=== PATIENT | female | born 1960 | race Caucasian/White ===

== ENCOUNTER 2021-05-19 21:18 | Inpatient (IN) | payer BC ==
[~2021-05-19] VITALS: Ht 160 cm; Wt 100.2 kg
--- NOTE | 2021-05-19 21:41 | NUR ---
Pt BIB EMS for generalized edema that has become worse over the last two weeks, this has caused the pt to also expierences SOB and difficulty breathing. Pt has audible stridor on exhalation and is on 4L NC to aid in oxygenation. Pt has indwelling catheter placed [employer], prior facility administered lasix and recived 650 mL output. Urine production still steady, EKG done on arrival, connected to BP and O2 monitors, TM
--- NOTE | 2021-05-19 21:51 | NUR ---
Favio ([facility]) [phone]
[2021-05-19 22:26] LABS: ANION GAP 7 mmol/L (5-15); CALCIUM 7.1 mg/dL (8.5-10.1); CHLORIDE 105 mmol/L (98-107)
[2021-05-19 22:29] LABS: TROPONIN I < 0.015 ng/mL (0.000-0.045)
--- NOTE | 2021-05-19 22:39 | NUR ---
Favio called and notified of room change
[2021-05-19] MEDS ORDERED: BISACODYL 10 MG SUPP PR PRN (23:00)
[2021-05-19] MEDS: ERYTHROMYCIN OPHTH 0.5%, 1GM EACHEYE SCH (23:00)
[2021-05-19] MEDS: SODIUM CHLORIDE FLUSH 10ML SYR IVF SCH (23:00)
[2021-05-19] MEDS: NYSTATIN TOPICAL POWDER 15GM TP SCH (23:00)
[2021-05-19] MEDS ORDERED: ACETAMINOPHEN 325 MG TABLET PO PRN (23:00)
[2021-05-19] MEDS ORDERED: POTASSIUM CHLORIDE 40 MEQ in SODIUM CHLORIDE 0.9% 100 ML IV ONE (23:00)
[2021-05-19] MEDS ORDERED: POLYETHYLENE GLYCOL 17 GM PACKET PO PRN (23:00)
[2021-05-19] MEDS ORDERED: POTASSIUM CHLORIDE 40 MEQ in SODIUM CHLORIDE 0.9% 500 ML IV ONE (23:45)
[2021-05-20] MEDS: HEPARIN 5,000 UNITS/ML, 1ML SQ SCH ×3 (00:57→17:11)
[2021-05-20 01:13] VITALS: BP 132/82
[2021-05-20 01:22] VITALS: BP 132/79
[2021-05-20] MEDS ORDERED: MAGNESIUM SULFATE PMX 2GM/50ML 50 ML IV ONE (02:00)
[2021-05-20 05:11] LABS: MICROSCOPIC INDICATED
[2021-05-20 05:44] LABS: BASOPHILS % (AUTO) 1 % (0-1); EOSINOPHILS % (AUTO) 4 % (1-7); LYMPHOCYTES % (AUTO) 23 % (22-44); MEAN CORPUSCULAR HEMOGLOBIN 36.7 pg (27.0-34.8); MEAN CORPUSCULAR HGB CONC 33.3 g/dL (32.4-35.8); MEAN PLATELET VOLUME 8.5 fL (7.4-10.4); MONOCYTES % (AUTO) 9 % (2-9); NEUTROPHILS % (AUTO) 63 % (42-75); PLATELET COUNT 218 x10^3/uL (130-400); RED CELL DISTRIBUTION WIDTH 18.6 % (9.6-15.2)
[2021-05-20 05:50] LABS: ANION GAP 7 mmol/L (5-15); CALCIUM 7.1 mg/dL (8.5-10.1); CHLORIDE 106 mmol/L (98-107)
[2021-05-20 05:51] LABS: CREATININE 1.16 mg/dL (0.55-1.02)
[2021-05-20 06:15] LABS: <PLATELET ESTIMATE> ADEQUATE; <PLT MORPHOLOGY> NORMAL PLT MORPH; ANISOCYTOSIS 1+
[2021-05-20] MEDS: ERYTHROMYCIN OPHTH 0.5%, 1GM EACHEYE SCH ×4 (06:17→21:06)
[2021-05-20] MEDS: SODIUM CHLORIDE FLUSH 10ML SYR IVF SCH ×2 (07:50→21:00)
[2021-05-20] MEDS: FUROSEMIDE 40 MG/4 ML IV SCH ×2 (07:50→17:11)
[2021-05-20] MEDS: SENNA/DOCUSATE TABLET PO SCH (07:51)
[2021-05-20 08:01] VITALS: BP 148/94
[2021-05-20] MEDS ORDERED: MAGNESIUM SULFATE PMX 4GM/100M 100 ML IVPB ONE (08:30)
[2021-05-20] MEDS: POTASSIUM CHLORIDE 20 MEQ PACKET PO SCH ×2 (09:12→17:11)
[2021-05-20] MEDS: NYSTATIN TOPICAL POWDER 15GM TP SCH ×3 (09:52→21:06)
[2021-05-20 12:31] VITALS: BP 132/90
[2021-05-20] MEDS ORDERED: PHARMACY MAY ADJ FOR RENAL FX MC PRN (15:30)
[2021-05-20] MEDS: AMPICILLIN/SULBACTAM 3 GM in SODIUM CHLORIDE 0.9% 100 ML IV SCH ×2 (17:10→21:06)
[2021-05-20 18:44] VITALS: BP 119/73
[2021-05-21] MEDS: HEPARIN 5,000 UNITS/ML, 1ML SQ SCH ×4 (00:40→23:47)
[2021-05-21 02:15] VITALS: BP 122/72
[2021-05-21] MEDS: AMPICILLIN/SULBACTAM 3 GM in SODIUM CHLORIDE 0.9% 100 ML IV SCH ×4 (03:49→22:42)
[2021-05-21 05:10] LABS: CALCIUM 7.3 mg/dL (8.5-10.1); CHLORIDE 105 mmol/L (98-107)
[2021-05-21 05:13] LABS: ANION GAP 4 mmol/L (5-15)
[2021-05-21] MEDS: ERYTHROMYCIN OPHTH 0.5%, 1GM EACHEYE SCH ×4 (06:32→21:18)
[2021-05-21 07:35] VITALS: BP 126/82
[2021-05-21] MEDS: SENNA/DOCUSATE TABLET PO SCH (08:18)
[2021-05-21] MEDS: SODIUM CHLORIDE FLUSH 10ML SYR IVF SCH ×2 (08:18→21:00)
[2021-05-21] MEDS: FUROSEMIDE 40 MG/4 ML IV SCH ×2 (08:18→18:13)
[2021-05-21] MEDS: MAGNESIUM OXIDE 400 MG TABLET PO SCH (08:23)
[2021-05-21] MEDS ORDERED: POTASSIUM CHLORIDE 20 MEQ TAB.ER.PRT PO ONE (08:30)
[2021-05-21 13:19] VITALS: BP 129/85
[2021-05-21] MEDS: NYSTATIN TOPICAL POWDER 15GM TP SCH ×3 (13:36→21:18)
[2021-05-21 20:00] VITALS: BP 107/68
[2021-05-22 00:03] VITALS: BP 100/64
[2021-05-22] MEDS: AMPICILLIN/SULBACTAM 3 GM in SODIUM CHLORIDE 0.9% 100 ML IV SCH ×4 (04:07→20:30)
[2021-05-22 05:47] LABS: ALANINE AMINOTRANSFERASE 15 U/L (12-78); ALBUMIN 1.6 g/dL (3.4-5.0); ANION GAP 3 mmol/L (5-15); CALCIUM 7.3 mg/dL (8.5-10.1); CHLORIDE 102 mmol/L (98-107); CREATININE 0.97 mg/dL (0.55-1.02)
[2021-05-22 05:48] LABS: ALKALINE PHOSPHATASE 70 U/L (45-117); BASOPHILS % (AUTO) 1 % (0-1); BILIRUBIN,TOTAL 2.1 mg/dL (0.2-1.0); EOSINOPHILS % (AUTO) 6 % (1-7); LYMPHOCYTES % (AUTO) 25 % (22-44); MEAN CORPUSCULAR HEMOGLOBIN 36.7 pg (27.0-34.8); MEAN CORPUSCULAR HGB CONC 33.7 g/dL (32.4-35.8); MEAN PLATELET VOLUME 8.6 fL (7.4-10.4); MONOCYTES % (AUTO) 8 % (2-9); NEUTROPHILS % (AUTO) 60 % (42-75); PLATELET COUNT 165 x10^3/uL (130-400); RED BLOOD COUNT 2.98 x10^6/uL (3.82-5.3); RED CELL DISTRIBUTION WIDTH 18.3 % (9.6-15.2); TOTAL PROTEIN 5.2 g/dL (6.4-8.2)
[2021-05-22] MEDS: ERYTHROMYCIN OPHTH 0.5%, 1GM EACHEYE SCH ×4 (07:21→20:30)
[2021-05-22 07:43] VITALS: BP 97/61
[2021-05-22] MEDS ORDERED: POTASSIUM CHLORIDE 20 MEQ TAB.ER.PRT PO ONE (08:00)
[2021-05-22] MEDS: HEPARIN 5,000 UNITS/ML, 1ML SQ SCH ×2 (08:33→15:36)
[2021-05-22] MEDS: MAGNESIUM OXIDE 400 MG TABLET PO SCH (08:33)
[2021-05-22] MEDS: SODIUM CHLORIDE FLUSH 10ML SYR IVF SCH ×2 (08:34→20:30)
[2021-05-22] MEDS: SENNA/DOCUSATE TABLET PO SCH (08:34)
[2021-05-22] MEDS: NYSTATIN TOPICAL POWDER 15GM TP SCH ×3 (08:34→20:30)
[2021-05-22 12:35] VITALS: BP 104/65
[2021-05-22] MEDS: FUROSEMIDE 20 MG/2 ML IV SCH (16:24)
[2021-05-22 19:02] VITALS: BP_SYST 90; BP_SYST 98; BP_DIAS 60; BP_DIAS 65
[2021-05-23] MEDS: HEPARIN 5,000 UNITS/ML, 1ML SQ SCH ×4 (00:07→23:54)
[2021-05-23 00:08] VITALS: BP 90/49
[2021-05-23] MEDS: AMPICILLIN/SULBACTAM 3 GM in SODIUM CHLORIDE 0.9% 100 ML IV SCH (04:31)
[2021-05-23 05:30] LABS: ANION GAP 5 mmol/L (5-15); CALCIUM 7.5 mg/dL (8.5-10.1); CHLORIDE 102 mmol/L (98-107)
[2021-05-23] MEDS: ERYTHROMYCIN OPHTH 0.5%, 1GM EACHEYE SCH ×4 (06:02→20:06)
[2021-05-23] MEDS: FUROSEMIDE 20 MG/2 ML IV SCH ×2 (06:03→17:38)
[2021-05-23 06:59] VITALS: BP 151/87
[2021-05-23 07:04] VITALS: BP 101/62
[2021-05-23] MEDS: SENNA/DOCUSATE TABLET PO SCH (09:00)
[2021-05-23] MEDS: MAGNESIUM OXIDE 400 MG TABLET PO SCH (09:03)
[2021-05-23] MEDS: AMOXICILLIN/CLAV 875-125MG TABLET PO SCH ×2 (09:03→20:06)
[2021-05-23] MEDS: SODIUM CHLORIDE FLUSH 10ML SYR IVF SCH ×2 (09:04→20:06)
[2021-05-23] MEDS: NYSTATIN TOPICAL POWDER 15GM TP SCH ×3 (09:04→20:06)
[2021-05-23] MEDS: POTASSIUM CHLORIDE 20 MEQ TAB.ER.PRT PO SCH (09:06)
[2021-05-23 14:00] VITALS: BP 126/87
[2021-05-23 18:58] VITALS: BP 109/72
[2021-05-24 01:07] VITALS: BP 108/70
[2021-05-24 06:08] LABS: CHLORIDE 99 mmol/L (98-107)
[2021-05-24 06:20] LABS: ANION GAP 3 mmol/L (5-15); CREATININE 0.84 mg/dL (0.55-1.02)
[2021-05-24] MEDS: FUROSEMIDE 20 MG/2 ML IV SCH ×2 (06:23→18:06)
[2021-05-24] MEDS: ERYTHROMYCIN OPHTH 0.5%, 1GM EACHEYE SCH ×4 (06:23→21:25)
[2021-05-24 07:20] VITALS: BP 100/62
[2021-05-24] MEDS: SENNA/DOCUSATE TABLET PO SCH (09:00)
[2021-05-24] MEDS: AMOXICILLIN/CLAV 875-125MG TABLET PO SCH ×2 (10:21→21:25)
[2021-05-24] MEDS: MAGNESIUM OXIDE 400 MG TABLET PO SCH (10:21)
[2021-05-24] MEDS: POTASSIUM CHLORIDE 20 MEQ TAB.ER.PRT PO SCH (10:22)
[2021-05-24] MEDS: HEPARIN 5,000 UNITS/ML, 1ML SQ SCH ×2 (10:24→18:08)
[2021-05-24] MEDS: NYSTATIN TOPICAL POWDER 15GM TP SCH ×3 (10:31→21:25)
[2021-05-24] MEDS: SODIUM CHLORIDE FLUSH 10ML SYR IVF SCH ×2 (10:31→21:25)
[2021-05-24 13:40] VITALS: BP 116/79
[2021-05-24 19:57] VITALS: BP 116/79
[2021-05-25 01:41] VITALS: BP 123/74
[2021-05-25] MEDS: HEPARIN 5,000 UNITS/ML, 1ML SQ SCH ×3 (02:20→17:44)
[2021-05-25] MEDS: ERYTHROMYCIN OPHTH 0.5%, 1GM EACHEYE SCH ×4 (05:16→21:32)
[2021-05-25 05:58] LABS: ANION GAP 1 mmol/L (5-15); CHLORIDE 97 mmol/L (98-107); CREATININE 0.76 mg/dL (0.55-1.02)
[2021-05-25 06:48] VITALS: BP 105/67
[2021-05-25] MEDS: AMOXICILLIN/CLAV 875-125MG TABLET PO SCH ×2 (09:29→21:00)
[2021-05-25] MEDS: NYSTATIN TOPICAL POWDER 15GM TP SCH ×3 (09:29→21:33)
[2021-05-25] MEDS: FUROSEMIDE 40 MG TABLET PO SCH (09:29)
[2021-05-25] MEDS: SODIUM CHLORIDE FLUSH 10ML SYR IVF SCH ×2 (09:29→21:32)
[2021-05-25] MEDS: POTASSIUM CHLORIDE 20 MEQ TAB.ER.PRT PO SCH (09:29)
[2021-05-25 12:19] VITALS: BP 100/65
[2021-05-25 19:15] VITALS: BP 124/78
[2021-05-26 00:46] VITALS: BP 109/71
[2021-05-26] MEDS: HEPARIN 5,000 UNITS/ML, 1ML SQ SCH ×3 (02:06→18:33)
[2021-05-26] MEDS: ERYTHROMYCIN OPHTH 0.5%, 1GM EACHEYE SCH ×4 (05:32→20:44)
[2021-05-26 05:46] LABS: ANION GAP 2 mmol/L (5-15); CALCIUM 8.1 mg/dL (8.5-10.1); CHLORIDE 97 mmol/L (98-107)
[2021-05-26 08:11] VITALS: BP 107/62
[2021-05-26] MEDS: AMOXICILLIN/CLAV 875-125MG TABLET PO SCH ×2 (08:56→20:44)
[2021-05-26] MEDS: POTASSIUM CHLORIDE 20 MEQ TAB.ER.PRT PO SCH (08:56)
[2021-05-26] MEDS: FUROSEMIDE 40 MG TABLET PO SCH (08:56)
[2021-05-26] MEDS: SODIUM CHLORIDE FLUSH 10ML SYR IVF SCH ×2 (08:57→20:44)
[2021-05-26] MEDS: NYSTATIN TOPICAL POWDER 15GM TP SCH ×3 (09:02→20:44)
[2021-05-26 12:20] VITALS: BP 117/71
[2021-05-26 18:49] VITALS: BP 109/70
[2021-05-27] MEDS: HEPARIN 5,000 UNITS/ML, 1ML SQ SCH ×3 (01:03→18:06)
[2021-05-27 02:49] VITALS: BP 103/65
[2021-05-27] MEDS: ERYTHROMYCIN OPHTH 0.5%, 1GM EACHEYE SCH ×4 (05:23→20:22)
[2021-05-27 07:16] VITALS: BP 117/78
[2021-05-27] MEDS: NYSTATIN TOPICAL POWDER 15GM TP SCH ×3 (09:16→20:22)
[2021-05-27] MEDS: POTASSIUM CHLORIDE 20 MEQ TAB.ER.PRT PO SCH (09:17)
[2021-05-27] MEDS: FUROSEMIDE 40 MG TABLET PO SCH (09:17)
[2021-05-27] MEDS: SODIUM CHLORIDE FLUSH 10ML SYR IVF SCH ×2 (09:17→20:21)
[2021-05-27] MEDS: AMOXICILLIN/CLAV 875-125MG TABLET PO SCH ×2 (09:17→20:22)
[2021-05-27 13:27] VITALS: BP 127/79
[2021-05-27 19:39] VITALS: BP 114/69
[2021-05-28 00:35] VITALS: BP 98/61
[2021-05-28] MEDS: HEPARIN 5,000 UNITS/ML, 1ML SQ SCH ×3 (01:24→18:35)
[2021-05-28] MEDS: ERYTHROMYCIN OPHTH 0.5%, 1GM EACHEYE SCH ×4 (05:10→21:05)
[2021-05-28 06:15] LABS: BASOPHILS % (AUTO) 1 % (0-1); EOSINOPHILS % (AUTO) 6 % (1-7); LYMPHOCYTES % (AUTO) 30 % (22-44); MEAN CORPUSCULAR HEMOGLOBIN 36.9 pg (27.0-34.8); MEAN CORPUSCULAR HGB CONC 33.9 g/dL (32.4-35.8); MEAN PLATELET VOLUME 9.9 fL (7.4-10.4); MONOCYTES % (AUTO) 9 % (2-9); NEUTROPHILS % (AUTO) 54 % (42-75); PLATELET COUNT 213 x10^3/uL (130-400); RED BLOOD COUNT 2.95 x10^6/uL (3.82-5.3); RED CELL DISTRIBUTION WIDTH 16.8 % (9.6-15.2)
[2021-05-28 06:21] LABS: CALCIUM 8.5 mg/dL (8.5-10.1); CHLORIDE 96 mmol/L (98-107)
[2021-05-28 06:26] LABS: ALANINE AMINOTRANSFERASE 14 U/L (12-78); ALBUMIN 1.9 g/dL (3.4-5.0); ALKALINE PHOSPHATASE 68 U/L (45-117); ANION GAP 4 mmol/L (5-15); BILIRUBIN,TOTAL 1.7 mg/dL (0.2-1.0); CREATININE 0.77 mg/dL (0.55-1.02); TOTAL PROTEIN 5.8 g/dL (6.4-8.2)
[2021-05-28 07:49] VITALS: BP 136/79
[2021-05-28] MEDS: FUROSEMIDE 40 MG TABLET PO SCH (08:21)
[2021-05-28] MEDS: AMOXICILLIN/CLAV 875-125MG TABLET PO SCH ×2 (08:21→21:05)
[2021-05-28] MEDS: METOLAZONE 5 MG TABLET PO SCH (08:21)
[2021-05-28] MEDS: NYSTATIN TOPICAL POWDER 15GM TP SCH ×3 (08:22→21:05)
[2021-05-28] MEDS: SODIUM CHLORIDE FLUSH 10ML SYR IVF SCH ×2 (08:22→21:00)
[2021-05-28] MEDS ORDERED: FUROSEMIDE 40 MG/4 ML IV ONE (11:00)
[2021-05-28 14:29] VITALS: BP 126/82
[2021-05-28] MEDS ORDERED: MAGNESIUM SULFATE PMX 4GM/100M 100 ML IVPB ONE (16:00)
[2021-05-28 19:04] VITALS: BP 113/71
[2021-05-29 01:02] VITALS: BP 111/68
[2021-05-29] MEDS: HEPARIN 5,000 UNITS/ML, 1ML SQ SCH ×3 (02:32→18:06)
[2021-05-29 06:56] VITALS: BP 111/70
[2021-05-29 07:49] LABS: BASOPHILS % (AUTO) 1 % (0-1); EOSINOPHILS % (AUTO) 6 % (1-7); LYMPHOCYTES % (AUTO) 30 % (22-44); MEAN CORPUSCULAR HEMOGLOBIN 36.9 pg (27.0-34.8); MEAN CORPUSCULAR HGB CONC 33.9 g/dL (32.4-35.8); MEAN PLATELET VOLUME 9.7 fL (7.4-10.4); MONOCYTES % (AUTO) 8 % (2-9); NEUTROPHILS % (AUTO) 55 % (42-75); PLATELET COUNT 234 x10^3/uL (130-400); RED BLOOD COUNT 3.02 x10^6/uL (3.82-5.3); RED CELL DISTRIBUTION WIDTH 16.2 % (9.6-15.2)
[2021-05-29 08:00] LABS: CALCIUM 9.1 mg/dL (8.5-10.1)
[2021-05-29 08:10] LABS: ANION GAP 3 mmol/L (5-15); CHLORIDE 95 mmol/L (98-107)
[2021-05-29] MEDS: ERYTHROMYCIN OPHTH 0.5%, 1GM EACHEYE SCH ×4 (08:50→20:17)
[2021-05-29] MEDS: METOLAZONE 5 MG TABLET PO SCH (08:51)
[2021-05-29] MEDS: AMOXICILLIN/CLAV 875-125MG TABLET PO SCH (08:52)
[2021-05-29] MEDS: SODIUM CHLORIDE FLUSH 10ML SYR IVF SCH ×2 (08:52→20:17)
[2021-05-29] MEDS: NYSTATIN TOPICAL POWDER 15GM TP SCH ×3 (08:53→20:17)
[2021-05-29] MEDS: FUROSEMIDE 40 MG TABLET PO SCH (08:53)
[2021-05-29 12:44] VITALS: BP 132/82
[2021-05-29 18:29] VITALS: BP 102/64
[2021-05-30 01:15] VITALS: BP 104/65
[2021-05-30] MEDS: HEPARIN 5,000 UNITS/ML, 1ML SQ SCH ×3 (01:58→18:30)
[2021-05-30] MEDS: ERYTHROMYCIN OPHTH 0.5%, 1GM EACHEYE SCH ×4 (06:09→21:04)
[2021-05-30] MEDS ORDERED: OMNIPAQUE 350 MG/ML, 100ML BOTTLE ONE (07:58)
[2021-05-30 08:05] VITALS: BP 120/77
[2021-05-30] MEDS: NYSTATIN TOPICAL POWDER 15GM TP SCH ×3 (09:00→21:04)
[2021-05-30] MEDS: SODIUM CHLORIDE FLUSH 10ML SYR IVF SCH ×2 (09:00→21:00)
[2021-05-30] MEDS: FUROSEMIDE 40 MG TABLET PO SCH ×2 (09:03→09:05)
[2021-05-30] MEDS: METOLAZONE 5 MG TABLET PO SCH (09:03)
[2021-05-30] MEDS ORDERED: FUROSEMIDE 40 MG/4 ML IV ONE (09:30)
[2021-05-30 14:16] VITALS: BP 125/78
[2021-05-30 20:13] VITALS: BP 114/69
[2021-05-31 01:31] VITALS: BP 109/57
[2021-05-31] MEDS: HEPARIN 5,000 UNITS/ML, 1ML SQ SCH ×3 (02:10→17:28)
[2021-05-31] MEDS: ERYTHROMYCIN OPHTH 0.5%, 1GM EACHEYE SCH ×4 (05:42→21:37)
[2021-05-31 07:40] VITALS: BP 111/70
[2021-05-31] MEDS: NYSTATIN TOPICAL POWDER 15GM TP SCH ×3 (09:16→21:37)
[2021-05-31] MEDS: SODIUM CHLORIDE FLUSH 10ML SYR IVF SCH ×2 (09:16→21:37)
[2021-05-31] MEDS: METOLAZONE 5 MG TABLET PO SCH (09:16)
[2021-05-31 12:23] VITALS: BP 106/68
[2021-05-31] MEDS ORDERED: FUROSEMIDE 40 MG/4 ML IV ONE (14:00)
[2021-05-31 19:15] VITALS: BP 101/58
[2021-06-01 00:34] VITALS: BP 116/68
[2021-06-01] MEDS: HEPARIN 5,000 UNITS/ML, 1ML SQ SCH ×3 (01:11→22:27)
[2021-06-01] MEDS: ERYTHROMYCIN OPHTH 0.5%, 1GM EACHEYE SCH ×4 (06:45→22:27)
[2021-06-01 07:40] VITALS: BP 112/69
[2021-06-01] MEDS: METOLAZONE 5 MG TABLET PO SCH (08:38)
[2021-06-01] MEDS: SODIUM CHLORIDE FLUSH 10ML SYR IVF SCH ×2 (08:39→21:00)
[2021-06-01] MEDS: NYSTATIN TOPICAL POWDER 15GM TP SCH ×3 (08:39→22:27)
[2021-06-01 09:36] LABS: ANION GAP 4 mmol/L (5-15); CALCIUM 9.2 mg/dL (8.5-10.1); CHLORIDE 92 mmol/L (98-107); CREATININE 0.96 mg/dL (0.55-1.02)
[2021-06-01 12:24] VITALS: BP 105/68
[2021-06-01] MEDS ORDERED: POTASSIUM CHLORIDE 20 MEQ TAB.ER.PRT PO ONE (14:00)
[2021-06-01 20:00] VITALS: BP 104/66
[2021-06-02 01:09] VITALS: BP 101/60
[2021-06-02] MEDS: HEPARIN 5,000 UNITS/ML, 1ML SQ SCH ×3 (03:10→21:07)
[2021-06-02 03:59] LABS: ANION GAP 2 mmol/L (5-15); CALCIUM 9.1 mg/dL (8.5-10.1); CHLORIDE 94 mmol/L (98-107)
[2021-06-02] MEDS: ERYTHROMYCIN OPHTH 0.5%, 1GM EACHEYE SCH (05:22)
[2021-06-02 07:56] VITALS: BP 104/64
[2021-06-02] MEDS: METOLAZONE 5 MG TABLET PO SCH (08:38)
[2021-06-02] MEDS: NYSTATIN TOPICAL POWDER 15GM TP SCH ×3 (08:39→21:07)
[2021-06-02] MEDS: SODIUM CHLORIDE FLUSH 10ML SYR IVF SCH (08:39)
[2021-06-02 12:47] VITALS: BP 102/66
[2021-06-02 18:41] VITALS: BP 116/71
[2021-06-03 01:18] VITALS: BP 118/66
[2021-06-03] MEDS: HEPARIN 5,000 UNITS/ML, 1ML SQ SCH ×3 (04:25→20:27)
[2021-06-03] MEDS: NYSTATIN TOPICAL POWDER 15GM TP SCH ×3 (07:53→21:52)
[2021-06-03] MEDS: METOLAZONE 5 MG TABLET PO SCH (07:53)
[2021-06-03 07:54] VITALS: BP 110/65
[2021-06-03 12:49] VITALS: BP 106/68
[2021-06-03 18:56] VITALS: BP 103/65
[2021-06-04 02:26] VITALS: BP 127/71
[2021-06-04] MEDS: HEPARIN 5,000 UNITS/ML, 1ML SQ SCH ×3 (03:49→19:29)
[2021-06-04 05:55] LABS: ANION GAP 4 mmol/L (5-15); CALCIUM 9.1 mg/dL (8.5-10.1); CHLORIDE 99 mmol/L (98-107)
[2021-06-04 05:56] LABS: CREATININE 0.91 mg/dL (0.55-1.02)
[2021-06-04 07:35] VITALS: BP 109/72
[2021-06-04] MEDS: POTASSIUM CHLORIDE 20 MEQ TAB.ER.PRT PO SCH (07:35)
[2021-06-04] MEDS: METOLAZONE 5 MG TABLET PO SCH (07:35)
[2021-06-04] MEDS: NYSTATIN TOPICAL POWDER 15GM TP SCH ×3 (07:35→23:17)
[2021-06-04] MEDS: FUROSEMIDE 20 MG TABLET PO SCH (07:35)
[2021-06-04 12:06] VITALS: BP 113/71
[2021-06-04 21:09] VITALS: BP 117/69
[2021-06-05 00:20] VITALS: BP 102/61
[2021-06-05] MEDS: HEPARIN 5,000 UNITS/ML, 1ML SQ SCH ×3 (03:57→19:51)
[2021-06-05] MEDS: METOLAZONE 5 MG TABLET PO SCH (08:04)
[2021-06-05] MEDS: FUROSEMIDE 20 MG TABLET PO SCH (08:04)
[2021-06-05] MEDS: NYSTATIN TOPICAL POWDER 15GM TP SCH ×3 (08:04→19:51)
[2021-06-05] MEDS: POTASSIUM CHLORIDE 20 MEQ TAB.ER.PRT PO SCH (08:04)
[2021-06-05 08:06] VITALS: BP 108/70
[2021-06-05] MEDS ORDERED: POTA20TA6 PO (10:55)
[2021-06-05] MEDS ORDERED: METO5TAB5 PO (10:55)
[2021-06-05] MEDS ORDERED: FURO20TA3 PO (10:55)
[2021-06-05 12:06] VITALS: BP 107/68
[2021-06-05 19:39] VITALS: BP 121/73
[2021-06-06 00:15] VITALS: BP 100/60
[2021-06-06] MEDS: HEPARIN 5,000 UNITS/ML, 1ML SQ SCH ×2 (04:05→11:24)
[2021-06-06 06:46] VITALS: BP 102/59
[2021-06-06] MEDS: FUROSEMIDE 20 MG TABLET PO SCH (09:08)
[2021-06-06] MEDS: NYSTATIN TOPICAL POWDER 15GM TP SCH ×2 (09:08→15:53)
[2021-06-06] MEDS: POTASSIUM CHLORIDE 20 MEQ TAB.ER.PRT PO SCH (09:08)
[2021-06-06] MEDS: METOLAZONE 5 MG TABLET PO SCH (09:08)
[2021-06-06 13:12] VITALS: BP 109/63
[2021-06-06 19:11] VITALS: BP 124/75
== END 2021-06-06 20:43 | disposition home or self-care (01) | DRG 291 ==
LOC: ED 22:13 → UNDOADMIN 22:31 → EDIP 22:31 → 4WST 23:10 → 5SO 05-20 00:06 → 3N 05-24 22:50
PROVIDERS: ADMIT Internal Medicine; ATTEND Family Medicine
PROC: 0T9B70Z Drainage of Bladder with Drainage Device, Via Natural or Artificial Opening (ICD-10-PCS; 2021-05-20)
PROC: 5A0935A Assistance with Respiratory Ventilation, Less than 24 Consecutive Hours, High Flow/Velocity Cannula (ICD-10-PCS; principal; 2021-05-28)
DX: I50.31 Acute diastolic (congestive) heart failure (principal); J96.21 Acute and chronic respiratory failure with hypoxia; N17.9 Acute kidney failure, unspecified; Z68.43 Body mass index [BMI] 50.0-59.9, adult; E66.2 Morbid (severe) obesity with alveolar hypoventilation; E46 Unspecified protein-calorie malnutrition; E78.5 Hyperlipidemia, unspecified; B37.9 Candidiasis, unspecified; E83.42 Hypomagnesemia; E87.6 Hypokalemia; H10.9 Unspecified conjunctivitis; I07.1 Rheumatic tricuspid insufficiency; I27.20 Pulmonary hypertension, unspecified; N61.0 Mastitis without abscess; N64.51 Induration of breast; Z87.19 Personal history of other diseases of the digestive system; Z90.710 Acquired absence of both cervix and uterus; G62.9 Polyneuropathy, unspecified; Z88.2 Allergy status to sulfonamides
CPT/HCPCS: 36415; 36600; 71045; 71275; 76642; 80048; 80053; 81001; 82607; 82803; 83735; 83880; 84145; 84484; 85025; 85379; 87040; 87086; 93005; 93306; 96374; 96375; G0378; J0295; J1644; J1940; J3480; Q9967; J3475; J7040